=== PATIENT | female | born 1970 | race American Indian/Alaskan Native ===

== ENCOUNTER 2017-09-03 18:03 | Emergency (ER) | payer MEDICAID ==
[~2017-09-03 18:03] MED LIST: ADRENALIN ONE; CALCIUM CHLORIDE IV ONE
--- NOTE | 2017-09-03 19:13 | Emergency Department Report ---
ED CPR HPI - General Chief Complaint: Cardiac Arrest/CPR Stated Complaint: CARDIAC ARREST Time Seen by Provider: 09/03/17 18:21 Source: EMS, RN notes reviewed, old records reviewed Mode of arrival: Stretcher Limitations: Other (patient arrives intubated and pulseless) - History of Present Illness Initial Comments: This is a 47-year-old female, unknown to this provider previously, recent hospitalization for small bowel obstruction and renal insufficiency. Brought to the hospital by EMS as an out of hospital cardiac arrest. They report initial presenting rhythm was bradycardia, and the patient went into pulseless left collectively. Upon arrival to the ER, EMS reported that the patient had been pulseless for at least 15 minutes. In the emergency room, the patient's presenting rhythm was pulseless electrical activity. Her pupils are fixed and dilated and do not react to light. Standard ACLS interventions are continued. Patient receives high-quality CPR and appropriate medications. Patient not a TPA candidate as she recently had surgery for lysis of adhesions. Unfortunately, despite prolonged resuscitation efforts, return of spontaneous circulation could not be obtained, and resuscitation efforts are terminated. MD Complaint: stopped breathing -: minute(s) Place: home Initial Findings in the Field: PEA (bradycardic--> pea) ROSC in the Field: No Associated Injuries: No Treatments Prior to Arrival: intubation, chest compressions, epinephrine mgs # - Related Data Home Medications Medication Instructions Recorded Confirmed Last Taken Allopurinol [Zyloprim] 300 mg PO DAILY 02/16/13 08/28/17 Unknown Lisinopril/Hydrochlorothiazide 1 tab PO BID 02/16/13 08/28/17 Unknown [Zestoretic 20-12.5 mg] Metoprolol [Lopressor TAB] 50 mg PO BID 02/16/13 08/28/17 08/27/17 PARoxetine [Paxil] 10 mg PO DAILY 02/16/13 08/28/17 08/27/17 Ranitidine HCl [Zantac 300 MG TAB] 150 mg PO BID 02/16/13 08/28/17 Unknown amLODIPine [Norvasc] 5 mg PO DAILY 02/16/13 08/28/17 08/27/17 Previous Rx's Medication Instructions Recorded Last Taken Type Cyclobenzaprine HCl [Flexeril] 5 mg PO Q8HR #30 tablet 02/16/13 Unknown Rx traMADol [Ultram 50 MG tab] 50 mg PO Q6HR PRN #30 tablet 02/16/13 Unknown Rx Cyclobenzaprine [Flexeril 10 MG 10 mg PO TID PRN #30 tablet 05/31/13 08/27/17 Rx TAB] HYDROcodone/APAP 7.5-325 [Campbell 1 each PO Q6HR PRN #20 tablet 05/31/13 08/27/17 Rx 7.5-325 mg TAB] Allergies Allergy/AdvReac Type Severity Reaction Status Date / Time No Known Allergies Allergy Unverified 02/16/13 07:36 ED Review of Systems ROS: Stated complaint: CARDIAC ARREST Other details as noted in HPI Comment: Unobtainable due to pts medical conditions ED Past Medical Hx - Past Medical History Hx Hypertension: Yes Hx Congestive Heart Failure: No Hx Diabetes: No Hx GERD: Yes Hx Asthma: No Hx COPD: No Additional medical history: Gout, obstructed bowel - Surgical History Additional Surgical History: Partial hysterectomy, bowel surgery 08/2017 - Social History Smoking Status: Never Smoker - Medications Home Medications: Home Medications Medication Instructions Recorded Confirmed Last Taken Type Allopurinol [Zyloprim] 300 mg PO DAILY 02/16/13 08/28/17 Unknown History Cyclobenzaprine HCl [Flexeril] 5 mg PO Q8HR #30 tablet 02/16/13 08/28/17 Unknown Rx Lisinopril/Hydrochlorothiazide 1 tab PO BID 02/16/13 08/28/17 Unknown History [Zestoretic 20-12.5 mg] Metoprolol [Lopressor TAB] 50 mg PO BID 02/16/13 08/28/17 08/27/17 History PARoxetine [Paxil] 10 mg PO DAILY 02/16/13 08/28/17 08/27/17 History Ranitidine HCl [Zantac 300 MG TAB] 150 mg PO BID 02/16/13 08/28/17 Unknown History amLODIPine [Norvasc] 5 mg PO DAILY 02/16/13 08/28/17 08/27/17 History traMADol [Ultram 50 MG tab] 50 mg PO Q6HR PRN #30 tablet 02/16/13 08/28/17 Unknown Rx Cyclobenzaprine [Flexeril 10 MG 10 mg PO TID PRN #30 tablet 05/31/13 08/28/17 Rx TAB] HYDROcodone/APAP 7.5-325 [Campbell 1 each PO Q6HR PRN #20 tablet 05/31/13 08/28/17 08/27/17 Rx 7.5-325 mg TAB] ED Physical Exam - General Limitations: Other (intubated, GCS of 3) General appearance: lethargic - Head Head exam: Present: atraumatic, normocephalic - Eye Eye exam: Present: other (pupils not reactive to light bilaterally) - ENT ENT exam: Present: other (endotracheal tube noted in the oropharynx) - Neck Neck exam: Present: normal inspection - Respiratory Respiratory exam: Present: other (no breath sounds unless [id number] ventilation is applied) - Cardiovascular Cardiovascular Exam: Present: other (patient is pulseless) - GI/Abdominal GI/Abdominal exam: Present: soft, other (anterior abdominal wall elio noted, consistent with recent surgical history) - Extremities Exam Extremities exam: Present: normal inspection, other (right lower extremity intraosseous IV is noted) - Back Exam Back exam: Present: paraspinal tenderness - Neurological Exam Neurological exam: Present: altered, other (GCS of 3, nonverbal) - Psychiatric Psychiatric exam: Present: other (patient is nonverbal) - Skin Skin exam: Present: dry - EJ/Peripheral Line Neck R Time Out Performed: No Indications: nurses unable to establis Skin Cleansed in Sterile Fashion: Yes Size: 20 Dressing Placed: Tegaderm Patient Tolerated Procedure: well ED Medical Decision Making - Medical Decision Making Differential diagnosis, including but not limited to: Pulmonary embolus, anemia , hyperkalemia Critical care attestation.: If time is entered above; I have spent that time in minutes in the direct care of this critically ill patient, excluding procedure time. ED Disposition Clinical Impression: Cardiac arrest Disposition: DC-20 Is pt being admited?: No Does the pt Need Aspirin: No Condition: Undetermined Referrals: PRIMARY CARE,MD [Primary Care Provider] - 3-5 Days
== END 2017-09-03 20:35 ==
LOC: ED 18:03
DX: I46.9 Cardiac arrest, cause unspecified (principal); I10 Essential (primary) hypertension; K21.9 Gastro-esophageal reflux disease without esophagitis; Z90.710 Acquired absence of both cervix and uterus
CPT/HCPCS: 36556; 92950; 99285; J0171